=== PATIENT | female | born 1930 | race Caucasian/White ===

== ENCOUNTER 2017-12-20 11:03 | Emergency (ER) | payer MEDICARE, OTHER ==
[~2017-12-20] VITALS: Ht 160 cm; Wt 61.2 kg
[~2017-12-20 11:03] MED LIST: CENTANY30 GM TOP; COSOPT EYE DROPS5 ML OPHTHALMIC; KEFLEX500 MG PO
[2017-12-20] MEDS ORDERED: MUCINEX600 MG PO (11:19)
[2017-12-20] MEDS ORDERED: NAMENDA 10 MG T10 MG PO (11:20)
[2017-12-20] MEDS ORDERED: BENTYL 10 MG CA10 M1 PO (11:20)
[2017-12-20] MEDS ORDERED: VITAMIN D2000 UNIT PO (11:21)
[2017-12-20] MEDS ORDERED: FLONASE 0.05%50 MCG NASAL (11:21)
[2017-12-20] MEDS ORDERED: ALENDRONATE SOD70 MG PO (11:21)
[2017-12-20] MEDS ORDERED: CLARITIN10 MG PO (11:21)
[2017-12-20] MEDS ORDERED: TUMS PO (11:21)
[2017-12-20] MEDS ORDERED: ESTRADIOL 1 MG T1 M1 TOP (11:21)
[2017-12-20] MEDS ORDERED: TYLENOL EXTRA500 MG PO (11:22)
[2017-12-20] MEDS ORDERED: ALEVE220 MG PO (11:22)
[2017-12-20] MEDS ORDERED: LEXAPRO 10 MG T10 M1 PO (11:22)
[2017-12-20] MEDS ORDERED: VITAMIN E400 UNIT PO (11:22)
[2017-12-20] MEDS ORDERED: SYSTANE CONTACT12 ML OPHTHALMIC (11:22)
[2017-12-20] MEDS ORDERED: TRAVATAN Z2.5 ML OPHTHALMIC (11:23)
[2017-12-20 12:01] LABS: HEMATOCRIT 38.3 % (37.0-47.0); HEMOGLOBIN 13.1 gm/dL (12.0-15.0); MCH 31.7 pg (26.0-34.0); MCHC 34.2 g/dL (28.0-37.0); MCV 92.8 fL (80.0-100.0); MPV 7.2 fl. (7.2-11.1); NUCLEATED RBCS 0 /100WBC; PLATELET COUNT* 209 thou/uL (150-400); RBC 4.13 mil/uL (4.20-5.00); RDW-CV 13.4 % (10.5-14.5); WBC 8.6 thou/uL (4.0-11.0)
[2017-12-20 12:08] LABS: ANION GAP 11 mmol/L (7-16); BUN 31 mg/dL (7-18); CALCIUM 8.9 mg/dL (8.5-10.1); CHLORIDE 102 mmol/L (98-107); CO2 25 mmol/L (21-32); CREATININE 1.2 mg/dL (0.6-1.3); GLUCOSE 108 mg/dL (70-99); POTASSIUM 3.8 mmol/L (3.5-5.1); SODIUM 138 mmol/L (136-145)
[2017-12-20 12:13] LABS: URINE BILIRUBIN NEGATIVE (Negative); URINE BLOOD 3+ (Negative); URINE CLARITY CLOUDY; URINE COLOR YELLOW; URINE GLUCOSE-RANDOM NEGATIVE (Negative); URINE KETONES NEGATIVE (Negative); URINE LEUKOCYTES-REFLEX 3+ (Negative); URINE NITRITE-REFLEX POSITIVE (Negative); URINE PROTEIN 1+ (Negative); URINE UROBILINOGEN 0.2 E.U./dl (0.2-1.0)
[2017-12-20 12:18] LABS: ABSOLUTE MONOCYTES 2.1 thou/uL (0.0-1.2); ABSOLUTE NEUTROPHILS 4.6 thou/uL (1.6-8.1); PLATELET ESTIMATE ADEQUATE
[2017-12-20 12:19] LABS: ALBUMIN 2.9 g/dL (3.4-5.0); ALKALINE PHOSPHATASE 56 U/L (46-116); NT-PRO BRAIN NAT PEPTIDE 491 pg/mL (<300); SGOT 22 U/L (15-37); SGPT 19 U/L (30-65); TOTAL BILIRUBIN 0.4 mg/dL (<0.1-1.0); TOTAL PROTEIN 7.5 g/dL (6.4-8.2); TROPONIN-I LEVEL <0.06 ng/mL (<0.06)
[2017-12-20 12:21] LABS: BACTERIA-REFLEX >30 Many /HPF (None Seen); CASTS None Seen /LPF (None Seen); CRYSTALS None Seen /LPF (None Seen); MUCUS 0-3 Light strn/LPF (None Seen); SQUAMOUS 0-3 Few /LPF (0-3); URINE RBC 3-10 Few /HPF (0-2)
[2017-12-20 12:35] LABS: INFLUENZA A ANTIGEN None Detected (None Detect)
[2017-12-20] MEDS ORDERED: LEVAQUIN 500 M500 MG PO (12:46)
[2017-12-20 12:55] VITALS: BP 98/56
--- NOTE | 2017-12-20 17:22 | EKG ---
[place] [address] ELECTROCARDIOGRAM REPORT Name: ALEXANDRA SOLOMON Roberto Carlos Room: [facility]#: [id number] Admission: 12/20/17 Attend Phys: Discharge: 12/20/17 Date of : 34 Report #: [id number] THIS REPORT FOR: //name// [facility] ED Test Date: 2017-12-20 Test Time: 11:14:01 Pat Name: ALEXANDRA SOLOMON Department: Room: Gender: F Heddler: Mala MIX : 1930 Requested By: Antony Snow Order Number: [id number] MD: Rodney Goodrich Measurements Intervals [place] Rate: 78 P: 84 NH: 158 QRS: 72 QRSD: 85 T: 53 QT: 361 QTc: 412 Interpretive Statements Sinus rhythm Consider left atrial enlargement No previous ECG available for comparison Electronically Signed On 12-20-2017 17:21:55 [employer] CLERK by Rodney Goodrich [email or web address] <ELECTRONICALLY SIGNED> By: Rodney Goodrich MD, [facility] 12/20/17 1721 1114 1114 Rodney Goodrich MD, FACC /EPI
== END 2017-12-20 12:56 | disposition home or self-care (01) ==
LOC: M.ERS 11:03
PROVIDERS: Physician Assistant
DX: J10.1 Influenza due to other identified influenza virus with other respiratory manifestations (principal); N39.0 Urinary tract infection, site not specified; Z88.8 Allergy status to other drugs, medicaments and biological substances; Z88.6 Allergy status to analgesic agent; Z88.2 Allergy status to sulfonamides